=== PATIENT | male | born 1945 | race Caucasian/White ===

== ENCOUNTER → 2021-01-01 | Outpatient (CLI) | payer MEDICARE, OTHER ==
[~2021-01-01] MED LIST: COREG6.25 MG PO; ECOTRIN81 MG PO; ELIQUIS 2.5 MG2.5 MG PO; GLUCOPHAGE500 MG PO; LOTENSIN20 MG PO; NITROSTAT0.4 MG SL; PERCOCET 5-3251 EACH PO; PLAVIX 75 MG TA75 MG PO; ZETIA 10 MG TAB10 MG PO
[2021-01-01 11:19] LABS: RED BLOOD COUNT 5.04 M/UL (4.20-5.50); WHITE BLOOD COUNT 7.3 K/UL (4.5-11.0)
[2021-01-01 12:04] LABS: BUN/CREATININE RATIO 25 (0-10)
[2021-01-02 11:14] LABS: CREATININE, URINE 61.5 mg/dL (Not Estab.); MICROALB/CREAT RATIO <5 (0-29)
[2021-01-03 12:14] LABS: CHOLESTEROL, TOTAL 260 mg/dL (100-199); HDL SIZE 8.2 nm (>=9.2); HDL-C 45 mg/dL (>39); HDL-P (TOTAL) 26.6 umol/L (>=30.5); LARGE HDL-P 1.4 umol/L (>=4.8); LARGE VLDL-P 1.5 nmol/L (<=2.7); LDL-C 199 mg/dL (0-99); LDL-P 2171 nmol/L (<1000); LP-IR SCORE 52 (<=45); SMALL LDL-P 704 nmol/L (<=527); TRIGLYCERIDES 90 mg/dL (0-149); VLDL SIZE 39.2 nm (<=46.6)
== END ==
LOC: LAB 09:41
PROVIDERS: Emergency Medicine
DX: E78.2 Mixed hyperlipidemia (principal); I10 Essential (primary) hypertension; E11.9 Type 2 diabetes mellitus without complications; R97.20 Elevated prostate specific antigen [PSA]
CPT/HCPCS: 36415; 80053; 80061; 82043; 82570; 83036; 83704; 84153; 84443; 84550; 85025

== ENCOUNTER → 2021-02-12 | Outpatient (CLI) | payer MEDICARE, OTHER | LOC: KOH-I 14:24 | DX: S46.002D Unspecified injury of muscle(s) and tendon(s) of the rotator cuff of left shoulder, subsequent encounter (principal); W01.0XXD Fall on same level from slipping, tripping and stumbling without subsequent striking against object, subsequent encounter; S46.812D Strain of other muscles, fascia and tendons at shoulder and upper arm level, left arm, subsequent encounter | CPT/HCPCS: 73221 ==

== ENCOUNTER → 2021-07-04 | Outpatient (CLI) | payer MEDICARE, OTHER | LOC: LBRF 15:41 | DX: H61.92 Disorder of left external ear, unspecified (principal) ==

== ENCOUNTER → 2021-12-11 | Outpatient (CLI) | payer MEDICARE, OTHER ==
[2021-12-11 12:28] LABS: BUN/CREATININE RATIO 25 (0-10)
[2021-12-13 12:12] LABS: CHOLESTEROL, TOTAL 240 mg/dL (100-199); HDL SIZE 8.4 nm (>=9.2); HDL-C 42 mg/dL (>39); HDL-P (TOTAL) 26.3 umol/L (>=30.5); LARGE HDL-P 1.6 umol/L (>=4.8); LARGE VLDL-P 1.8 nmol/L (<=2.7); LDL SIZE 21.2 nm (>20.5); LDL SIZE 21.2 nm (>=20.8); LDL-C 181 mg/dL (0-99); LDL-P 2211 nmol/L (<1000); LP-IR SCORE 54 (<=45); SMALL LDL-P 887 nmol/L (<=527); TRIGLYCERIDES 94 mg/dL (0-149); VLDL SIZE 39.8 nm (<=46.6)
== END ==
LOC: LAB 11:23
PROVIDERS: Emergency Medicine
DX: I25.10 Atherosclerotic heart disease of native coronary artery without angina pectoris (principal); I10 Essential (primary) hypertension; E78.2 Mixed hyperlipidemia; E11.9 Type 2 diabetes mellitus without complications; I65.29 Occlusion and stenosis of unspecified carotid artery
CPT/HCPCS: 36415; 80053; 80061; 83036; 83704; 84550

== ENCOUNTER → 2021-12-20 | Outpatient (CLI) | payer MEDICARE, OTHER | LOC: LAB 09:37 | DX: R06.02 Shortness of breath (principal) | CPT/HCPCS: 36415; 71046; 83880; 85379 ==

== ENCOUNTER → 2021-12-25 | Outpatient (CLI) | payer MEDICARE, OTHER | LOC: CT 15:15 | DX: R06.02 Shortness of breath (principal); I25.10 Atherosclerotic heart disease of native coronary artery without angina pectoris; I10 Essential (primary) hypertension; R91.8 Other nonspecific abnormal finding of lung field | CPT/HCPCS: 71275; Q9967 ==

== ENCOUNTER → 2022-02-12 | Outpatient (CLI) | payer MEDICARE, OTHER | LOC: HEART 5 14:43 | DX: R06.00 Dyspnea, unspecified (principal) | CPT/HCPCS: 94060; 94729 ==

== ENCOUNTER → 2022-02-20 | Outpatient (CLI) | payer MEDICARE, OTHER | LOC: HEART 5 07:53 | DX: I25.10 Atherosclerotic heart disease of native coronary artery without angina pectoris (principal); R06.02 Shortness of breath | CPT/HCPCS: 93306 ==

== ENCOUNTER → 2022-04-15 | Outpatient (CLI) | payer MEDICARE, OTHER ==
[2022-04-15 10:11] LABS: BUN/CREATININE RATIO 16 (0-10)
[2022-04-16 08:14] LABS: HEMOGLOBIN A1C 6.6 % (4.8-5.6)
== END ==
LOC: LAB 09:22
PROVIDERS: Emergency Medicine
DX: I10 Essential (primary) hypertension (principal); E78.2 Mixed hyperlipidemia; E11.9 Type 2 diabetes mellitus without complications
CPT/HCPCS: 36415; 80053; 83036